=== PATIENT | male | born 1965 | race Caucasian/White ===

== ENCOUNTER 2022-05-02 13:59 | Outpatient (CLI) | payer BC | END 2022-05-02 14:00 | disposition home or self-care (01) | LOC: CSHMRI 13:59 | PROVIDERS: ATTEND Specialist | DX: S49.91XA Unspecified injury of right shoulder and upper arm, initial encounter (principal); M75.81 Other shoulder lesions, right shoulder; M19.011 Primary osteoarthritis, right shoulder; R93.7 Abnormal findings on diagnostic imaging of other parts of musculoskeletal system ==

== ENCOUNTER 2022-05-21 09:40 | Outpatient (CLI) | payer BC | END 2022-05-21 09:41 | disposition home or self-care (01) | LOC: CSHMRI 09:40 | PROVIDERS: ATTEND Orthopaedic Surgery Sports Medicine | DX: M54.12 Radiculopathy, cervical region (principal); M47.812 Spondylosis without myelopathy or radiculopathy, cervical region; M48.02 Spinal stenosis, cervical region | CPT/HCPCS: 72141 ==